=== PATIENT | male | born 1975 | race Caucasian/White ===

== ENCOUNTER 2019-10-31 20:25 | Emergency (ER) | payer SELFPAY ==
[2019-10-31] MEDS ORDERED: Clindamycin 150 MG CAP ONE (21:00)
== END 2019-10-31 20:58 | disposition home or self-care (01) ==
LOC: NAV ERS 20:25
DX: K04.7 Periapical abscess without sinus (principal); K02.9 Dental caries, unspecified; I10 Essential (primary) hypertension; F41.9 Anxiety disorder, unspecified; F17.210 Nicotine dependence, cigarettes, uncomplicated; Z79.899 Other long term (current) drug therapy
CPT/HCPCS: 99283